=== PATIENT | female | born 1960 | race Two or more races ===

== ENCOUNTER 2019-04-15 15:50 | Emergency (ER) | payer MEDICARE, MEDICAID ==
[~2019-04-15] VITALS: Ht 172.7 cm; Wt 86.2 kg
[~2019-04-15 15:50] MED LIST: ALBUTEROL SULF8.5 GM INH; PROAIR HFA8.5 GM INH; ROBITUSSIN COU118 M4 PO
[2019-04-15 16:10] VITALS: BP 132/84
--- NOTE | 2019-04-15 16:10 | NUR ---
ED Nurse Note: pt walked in to ED due to coughing for last 3 days. c/o intermittent fever during night. skin warm to touch. breath sounds clear. respirations even and non-labored noted. AAO x4. will wait for the further order.
[2019-04-15] MEDS ORDERED: Albuterol/Ipratropium 3ml neb HHN SCH (16:15)
--- NOTE | 2019-04-15 16:44 | Emergency Room Report ---
History of Present Illness General Chief Complaint: Upper Respiratory Illness Source: Medical Record (Zarina Pino) Present Illness HPI 59-year-old female with no significant past medical history here complaining of 5 days of dry cough and feeling phlegm buildup in her throat as well as sore throat. Patient reports that her apartment complex her neighbors smoke and she often is exposed to secondhand smoke. Complains of wheezing at this time and is requesting a breathing treatment. Patient reports that she is not a big fan of western medicine and will try to limits the number of medication that she has to take. She usually takes home remedies. Denies any chest pain, shortness of breath, palpitation, dizziness, headache, abdominal pain nausea vomiting at this time. Has not taken any medication for symptom relief. Patient is sitting comfortably with stable vital signs. Denies smoking tobacco and drug use. Denies history of hypertension, and other associated symptoms. Denies recent travel or sick contact. (Zarina Pino) Allergies: Coded Allergies: No Known Allergies (Unverified , 04/29/16) Patient History Past Medical History: see triage record Past Surgical History: unable to obtain Pertinent Family History: none Last Menstrual Period: menopause Now: No Immunizations: UTD Reviewed Nursing Documentation: PMH: Agreed; PSxH: Agreed (Zarina Pino) Nursing Documentation-PMH Past Medical History: No History, Except For Hx Cardiac Problems: No - Osteoarthritis Hx Hypertension: No Hx Pacemaker: No - RA Hx Asthma: Yes Hx COPD: No Hx Diabetes: No Hx Cancer: No Hx Gastrointestinal Problems: No Hx Dialysis: No History Of Psychiatric Problem: No Hx Neurological Problems: No Hx Cerebrovascular Accident: No Hx Seizures: No (Zarina Pino) Review of Systems All Other Systems: negative except mentioned in HPI (Zarina Pino) Physical Exam Vital Signs Date Time Temp Pulse Resp B/P (MAP) Pulse Ox O2 Delivery O2 Flow Rate FiO2 04/15/19 16:03 99.1 67 16 132/84 (100) 97 Room Air 04/15/19 16:20 21 Sp02 EP Interpretation: reviewed, normal General Appearance: no apparent distress, alert, GCS 15, non-toxic Head: normocephalic, atraumatic Eyes: bilateral eye normal inspection, bilateral eye PERRL ENT: hearing grossly normal, no angioedema, normal voice, TMs + canals normal, nasal congestion, pharyngeal erythema, tonsillar exudate Neck: full range of motion, supple, thyroid normal, no meningismus, no bony tend, supple/symm/no masses Respiratory: chest non-tender, lungs clear, normal breath sounds, no rhonchi, no respiratory distress, no retraction, no accessory muscle use, no wheezing, speaking full sentences Cardiovascular #1: regular rate, rhythm, no edema, no gallop, no murmur, no rub Gastrointestinal: normal bowel sounds, non tender, soft, no mass, non-distended , no guarding, no rebound Genitourinary: no CVA tenderness Musculoskeletal: back normal, normal range of motion, no calf tenderness, gait/ station normal, non-tender Neurologic: alert, motor strength/tone normal, oriented x3, sensory intact, responsive, speech normal Psychiatric: judgement/insight normal, memory normal, mood/affect normal, no suicidal/homicidal ideation Skin: no rash Lymphatic: no adenopathy (Zarina Pino) Medical Decision Making PA Attestation All diagnoses and treatment plans were reviewed and discussed with my supervising physician Dr. Moses (Zarina Pino) Diagnostic Impression: Primary Impression: Atypical pneumonia ER Course 59-year-old female with no symptom past medical history here complaining of 5 days of dry cough and feeling phlegm buildup in her throat as well as sore throat. Patient reports that her apartment complex her neighbors to smoke and she often is exposed to secondhand smoke. Complains of wheezing at this time and is requesting a breathing treatment. Patient reports that she is not a big fan of western medicine and will try to limits the number of medication that she has to take. She usually takes home remedies. Denies any chest pain, shortness of breath, palpitation, dizziness, headache, abdominal pain nausea vomiting at this time. Has not taken any medication for symptom relief. Patient is sitting comfortably with stable vital signs. Denies smoking tobacco and drug use. Denies history of hypertension, and other associated symptoms. Denies recent travel or sick contact. Ddx considered but are not limited to: strep pharyngitis, URI, tonsillitis, peritonsillar abscess, influenza, atypical pneumonia Vital signs: are WNL, pt. is afebrile H&PE are most consistent with: Atypical pneumonia ORDERS: Chest x-ray, Z-Benjamin, Phenergan, albuterol inhaler ED INTERVENTIONS: Albuterol ipratropium treatment which I ordered for 3 doses however patient said that she feels fine after just 1 dose. DISCHARGE: At this time pt. is stable for d/c to home. Will provide printed patient care instructions, and any necessary prescriptions. Care plan and follow up instructions have been discussed with the patient prior to discharge. Patient to follow-up with her primary care provider, avoid exposure to smoke, if worsening symptoms return to the emergency room. Patient was given a choice to take Phenergan only if absolutely necessary as she is not fond of western medicine (Zarina Pino) Chest X-Ray Diagnostic Results Chest X-Ray Diagnostic Results : Chest X-Ray Ordered: Yes # of Views/Limited/Complete: 1 View Indication: Other EP Interpretation: Yes PA Xray: Interpretation reviewed, by supervising MD, and agrees with findings. Interpretation: no consolidation, no effusion, no pneumothorax, no acute cardiopulmonary disease Impression: No acute disease Electronically Signed by: Zarina Chicas PA-C (Zarina Pino) Chest X-Ray Diagnostic Results : Electronically Signed by: Josy Kirk documentation of Xray reviewed by me and is accurate, Antoine Moses MD (Antoine Moses MD) Last Vital Signs Date Time Temp Pulse Resp B/P (MAP) Pulse Ox O2 Delivery O2 Flow Rate FiO2 04/15/19 16:32 68 18 100 Room Air 21 66 18 98 04/15/19 16:10 99.1 132/84 (Zarina Pino) Disposition: HOME, SELF-CARE Condition: Stable Scripts Promethazine Hcl (PROMETHAZINE HCL*) 6.25 Mg/5 Ml Syrup 5 ML ORAL Q6H, #120 ML 0 Refills Prov: Zarina Pino 04/15/19 Albuterol Sulfate (VENTOLIN HFA) 18 Gm Hfa.aer.ad 2 PUFFS INH EVERY 6 HOURS, #18 GM 0 Refills Prov: Zarina Pino 04/15/19 Azithromycin* (ZITHROMAX*) 250 Mg Tablet 250 MG ORAL DAILY, #6 TAB 0 Refills Take two tables once daily for 1 day, then one tablet once daily for 4 days. Prov: Zarina Pino 04/15/19 Patient Instructions: Upper Respiratory Infection, Adult Additional Instructions: Take medication as directed, follow-up with your primary care provider, if worsening symptoms return to the emergency room Zarina Pino Apr 15, 2019 16:44 Antoine Moses MD Apr 16, 2019 02:09
[2019-04-15] MEDS ORDERED: VENTOLIN HFA18 GM INH (16:46)
[2019-04-15] MEDS ORDERED: ZITHROMAX250 MG ORAL (16:46)
[2019-04-15] MEDS ORDERED: PROMETHAZI6.25 MG/1 ORAL (16:46)
[2019-04-15 16:56] VITALS: BP 122/74
--- NOTE | 2019-04-15 16:57 | NUR ---
ER DISCHARGE NOTE: Patient is cleared to be discharged per ERMD, pt is aox4, on room air, with stable vital signs. pt was given dc and prescription instructions, pt was able to verbalize understanding, pt id band removed without complications. pt is able to ambulate with steady gait. pt took all belongings.
--- NOTE | 2019-04-15 17:27 | Diagnostic Imaging Report ---
EXAM: XR Chest, 1 View CLINICAL HISTORY: COUGH TECHNIQUE: Frontal view of the chest. COMPARISON: Chest radiograph on 03/07/2009 FINDINGS: Hardware: None. Lungs/pleura: Normal. No focal consolidation. No pleural effusion or pneumothorax. Heart/mediastinum: Normal. No cardiomegaly. Soft tissues: Unremarkable. Bones: No acute fracture. Upper abdomen: Normal. IMPRESSION: No acute disease identified.
== END 2019-04-15 16:58 | disposition home or self-care (01) ==
LOC: EMR 16:15
DX: J18.9 Pneumonia, unspecified organism (principal); M19.90 Unspecified osteoarthritis, unspecified site
CPT/HCPCS: 71045; 94640; 94664; 99283; J7620